=== PATIENT | male | born 1985 | race Caucasian/White ===

== ENCOUNTER 2021-04-30 09:47 | Emergency (ER) | payer OTHER, SELFPAY ==
--- NOTE | ~2021-04-30 | XR_ITS ---
EXAMINATION: XR finger 1st RT min 2V EXAM DATE: 04/30/2021 10:29 INDICATION: Laceration under nailbed right 1st. TECHNIQUE: Right 1st finger frontal, lateral and oblique projections obtained and reviewed. There is no prior study for comparison. FINDINGS: There are no acute right 1st finger fractures or dislocations identified. There is no subc utaneous gas. The soft tissue is unremarkable. There are no radiopaque foreign bodies. IMPRESSION: 1. Right 1st finger exam without acute osseous findings. Reviewed, dictated and finalized at location A.
[2021-04-30 09:53] VITALS: BP 139/88; PULSE 93; RESP 14; TEMP 36.7; O2SAT 99
--- NOTE | 2021-04-30 10:15 | ED.WOUNDLAC ---
HPI - Wound/Laceration General Chief Complaint: Wound/Laceration Stated Complaint: Finger Laceration Time Seen by Provider: 04/30/21 10:06 Source: patient Mode of arrival: ambulatory Limitations: no limitations History of Present Illness HPI narrative: This is a 35 year old male that presents to the ER for laceration to the right thumb sustained just prior to arrival. Reports he sustained a laceration by a pocket knife. The laceration involves some of the nail. He is up-to-date on tetanus. Reports bleeding and pain to the area. Denies decreased range of motion or numbness. Related Data Allergies Allergy/AdvReac Type Severity Reaction Status Date / Time No Known Allergies Allergy Verified 04/30/21 09:55 Review of Systems Review of Systems: CONSTITUTIONAL: Denies fever SKIN: Reports laceration MUSCULOSKELETAL: Denies joint pain, and myalgia. NEUROLOGIC: Denies numbness All systems reviewed & are unremarkable except as noted in HPI and below PMFSH Past Medical History Medical History (Updated 04/30/21 @ 12:38 by Jessica Saleem PA-C) No active medical problems Social History Social History (Updated 04/30/21 @ 10:27 by Jessica Saleem PA-C) Smoking status: Never smoker Substance use: never Gender identity (if verbalized by the patient): Male Exam Narrative: GENERAL: Well-appearing, well-nourished, and in no acute distress. HEAD: Normocephalic, atraumatic. EYES: EOMI. EXTREMITIES: Normal range of motion. No edema. Right thumb with 2.5cm linear laceration to the distal phalanx that involves a portion of the nail. Normal radial pulses SKIN: Warm, dry, no rash. NEURO: No focal deficits. Alert and oriented x3. PSYCH: Normal mood and affect Course Vital Signs Vital signs: Vital Signs Temperature 98.0 F 04/30/21 09:53 Pulse Rate 93 04/30/21 09:53 Respiratory Rate 14 04/30/21 09:53 Blood Pressure 139/88 04/30/21 09:53 Pulse Oximetry 99 04/30/21 09:53 Temperature 98.0 F 04/30/21 09:53 Pulse Rate 93 04/30/21 09:53 Respiratory Rate 14 04/30/21 09:53 Blood Pressure 139/88 04/30/21 09:53 Pulse Oximetry 99 04/30/21 09:53 Procedures Laceration Laceration 1: Date: 04/30/21 Time: 12:37 Site: hand Side (If applicable): right Size (cm): 2.5 Description: linear Depth: simple, single layer Local Anesthetic: lidocaine 1% Amount of anesthesia used (mL): 3 Pre-repair: irrigated ====== Skin Level ====== Skin layer closed with: nylon Size (cm): 4-0 Number of sutures: 5 Technique: simple, interrupted ====== Subcutaneous Layer ====== ====== Muscle Layer ====== ====== Tendon Layer ====== MDM - Wound/Laceration MDM Narrative Medical decision making narrative: Patient presents to the emergency department for laceration to the left first finger sustained just prior to arrival. Patient is neurovascularly intact. Left first finger x-rays without acute osseous abnormalities. Patient's wound was irrigated and closed with sutures. He is up-to-date on tetanus. He was educated on wound care. He is to follow-up with primary care doctor. He was given warnings to return to the ER Imaging Data Radiologist's impression: ITS Impressions Finger X-Ray 04/30/21 10:31 IMPRESSION: 1. Right 1st finger exam without acute osseous findings. Critical Care Time Critical Care Time Critical Care Time: No Discharge Plan Discharge Clinical Impression: Laceration Patient Disposition: Home, Self-Care Condition: Stable Instructions: Antibiotic Form, Care For Your Stitches (ED), Laceration (ED) Additional Instructions: Return to the emergency department if you experience fever, redness or swelling of your wound, abnormal drainage from your wound, or any other symptoms that are concerning to you. Take oral antibiotics as prescribed. Apply antibioti
[2021-04-30 11:30] VITALS: BP 125/77; PULSE 90; RESP 17; O2SAT 100
== END 2021-04-30 12:30 | disposition home or self-care (01) ==
PROVIDERS: Emergency Provider Emergency Medicine; PCP Internal Medicine
DX: S61.011A Laceration without foreign body of right thumb without damage to nail, initial encounter (principal); W26.0XXA Contact with knife, initial encounter
CPT/HCPCS: 12001; 73140; 90715; 99283